=== PATIENT | female | born 1945 | race African-American/Black ===

== ENCOUNTER 2018-04-18 14:50 | Inpatient (IN) ==
--- NOTE | 2018-04-18 15:06 | EKG Report ---
Test Performed on : 04/18/2018 3:00:16 PM Test Reason : chest pain Blood Pressure : / mmHG Vent. Rate : 078 BPM Atrial Rate : 078 BPM P-R Int : 198 ms QRS Dur : 102 ms QT Int : 420 ms P-R-T Axes : 051 -13 072 degrees QTc Int : 478 ms Normal sinus rhythm. Possible Left atrial enlargement Nonspecific T wave abnormality Abnormal ECG When compared with ECG of 02-FEB-2018 10:26, (Unconfirmed) Nonspecific T wave abnormality, improved in Anterior leads Unconfirmed Result
[2018-04-18 15:21] LABS: BASO# 0.01 X1000 (0.0-0.2); BASO% 0.1 % (0.0-0.8); EOS# 0.09 X1000 (0.0-0.7); EOS% 1.3 % (0.0-10.0); HEMATOCRIT 40.7 % (37.0-47.0); HEMOGLOBIN 12.4 g/dL (12.0-16.0); LYMPH# 2.88 X1000 (1.2-3.4); LYMPH% 40.5 % (20.5-51.1); MCH 29.2 PG (27-31); MCHC 30.5 g/dL (33-37); MONO# 0.61 X1000 (0.11-0.59); MONO% 8.6 % (1.7-9.3); MPV 11.5 FL (7.4-10.4); NEUT# 3.52 X1000 (1.4-6.5); NEUT% 49.5 % (42.2-75.2); PLT 180 X1000 (130-400); RBC 4.24 XMIL (4.2-5.4); RDW 15.3 % (11.5-14.5); WBC 7.11 X1000 (4.8-10.8)
[2018-04-18 15:28] LABS: INR 0.94; PROTIME 13.4 Seconds (11.0-16.0)
[2018-04-18 15:29] LABS: PTT 29.8 Seconds (22.3-41.8)
--- NOTE | 2018-04-18 15:41 | Diag Imaging Result Doc PS360 ---
EXAM: CHEST-2 VIEWS 04/18/2018 HISTORY: chest pain TECHNIQUE: PA and lateral chest COMMENT: There is no evidence of acute cardiac or pulmonary disease. Compared to 02/02/2018 there has been no significant change. IMPRESSION: No evidence of acute disease. Electronically signed by Luis Gonzalez 04/18/2018 3:39 PM
[2018-04-18 15:59] LABS: ALB/GLOB RATIO 1.4; ALBUMIN 4.2 g/dL (3.5-5.0); CALCIUM 9.1 mg/dL (8.8-10.2); CREATININE 1.2 mg/dL (0.5-0.9); POTASSIUM 4.5 mmol/L (3.5-5.1); TOTAL BILIRUBIN 0.32 mg/dL (0.20-1.00); TOTAL PROTEIN 7.2 g/dL (6.3-8.3)
--- NOTE | 2018-04-18 16:51 | ED EKG INTERP ---
This chart was entered by Rosa M Moreno Scribe, acting as scribe for Vin Case MD. EKG Interpretation - EKG Time of EKG reading by physician:: 15:00 EKG Read and Signed by:: Vin Case EKG Interpretation (*Must complete 3 of following elements*): Abnormal Rate: 78 Rhythm: nsr QRS: other (possible left atrial enlargement) OR Interval: normal ST Wave: normal Comments: nonspecific T wave abnormality Attestation - Physician/ THADDEUS Attestation Patient care was provided by Advanced Practice Provider:: No The physician spent face to face time with patient:: Yes Advanced Practice Provider documentation review:: Supervising physician onsite and consulted in the evaluation and care of this patient. The physician did have a face to face encounter with the patient. This chart was documented by the indicated scribe, (Rosa M Moreno Scribe) and accurately reflects the services I performed and decisions made by me, Vin Case MD, as attested by the provider's signature.
[2018-04-18] MEDS ORDERED: PLAVIX PO ONE (19:23)
[2018-04-18] MEDS ORDERED: LABETALOL IV ONE (19:24)
[2018-04-18] MEDS ORDERED: NITROGLYCERIN TOP ONE (19:37)
[2018-04-18] MEDS ORDERED: MORPHINE IV ONE (20:25)
[2018-04-19] MEDS ORDERED: NITROGLYCERIN SL PRN (03:19)
--- NOTE | 2018-04-19 03:20 | HISTORY AND PHYSICAL ---
PRIMARY CARE PHYSICIAN: Dr. Parker. CHIEF COMPLAINT: Chest pain. HISTORY OF PRESENTING ILLNESS: A 72-year-old female with a history of diabetes mellitus type 2, hypertension, hyperthyroidism and rheumatoid arthritis, who had presented to emergency department with 1-day history of having chest pain. She states that it was radiating to her back and she was somewhat nauseated. She described the chest pain as dull and pressure like. States that it was not improving and subsequently she had come to the emergency department. In the ED, she was evaluated and due to her presenting symptoms it was thought that we would place her for observation for further evaluation and management. At the time of my examination, she had denied any headache, fever, chills, hemoptysis, melena, weight changes, but complained of chest pain. PAST MEDICAL HISTORY: Include diabetes mellitus type 2, hypertension, hypothyroidism, rheumatoid arthritis, anxiety disorder. PAST SURGICAL HISTORY: Hysterectomy, cholecystectomy, breast reduction, left knee surgery. ALLERGIES: Penicillin, aspirin CURRENT MEDICATIONS: Include the following: Xanax 0.5 mg p.o. t.i.d., baclofen 10 mg p.o. b.i.d., hydrochlorothiazide 25 mg p.o. daily, insulin 10 units subcutaneous at bedtime and 20 units q.a.m., irbesartan 150 mg p.o. daily, levothyroxine 150 mcg p.o. daily, methocarbamol 750 mg p.o. t.i.d., Singular 10 mg p.o. at bedtime, omeprazole 40 mg p.o. daily, sucralfate 1 g p.o. t.i.d. SOCIAL HISTORY: No history of smoking, alcohol or illicit drug use. FAMILY HISTORY: No history of coronary artery disease. REVIEW OF SYSTEMS: Fourteen point review of systems as listed in HPI. Other systems negative. PHYSICAL EXAMINATION: GENERAL: Cooperative, friendly female. She is resting more comfortably now. VITAL SIGNS: Temperature 98.4 degrees, pulse 74, respiration 18, blood pressure 166/88. HEENT: Atraumatic, normocephalic. Extraocular movements intact. PERRL. NECK: Supple. CHEST: Clear to auscultation. CARDIOVASCULAR: Regular rate and rhythm. ABDOMEN: Soft, positive bowel sounds. EXTREMITIES: No edema. NEUROLOGIC: She is awake, alert, oriented x3. GENITOURINARY: No bladder distention. SKIN: Warm. LABORATORIES AND STUDIES: WBC 7.11, hemoglobin 12.4, hematocrit 40.7, platelets 180,000. Sodium 141, potassium 4.5, chloride 104, CO2 is 26, BUN is 17, creatinine is 1.2, glucose is 202. Troponin is 0.010. ASSESSMENT: A 72-year-old female with a history of diabetes mellitus type 2, hypertension, hypothyroidism and rheumatoid arthritis had presented to the emergency department with a 1-day history of having chest pain. The patient was evaluated the emergency department and due to her presenting symptoms we will place her for observation for further evaluation and management. 1. Chest pain, atypical. 2. Diabetes mellitus type 2. 3. Hypertension. 4. Hypothyroidism. PLAN: 1. We will admit patient to medical floor with telemetry. 2. Continue cardiac workup. Check EKG, serial cardiac enzymes. We will use sublingual nitroglycerin and morphine p.r.n. chest pain. 3. 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 4. Put patient on glycemic protocol with sliding scale insulin regimen. 5. We will monitor blood pressure closely. 6. Restart other home medications. 7. Put patient on DVT prophylaxis with SCD. 8. We will continue to follow, and reassess and make further recommendations based on patient's clinical course. cc: Preston Mcgovern MD MTDD
[2018-04-19 03:37] LABS: URINE SOURCE CLEAN CATCH
[2018-04-19 03:43] LABS: BILIRUBIN URINE NEGATIVE (NEGATIVE); BLOOD URINE NEGATIVE (NEGATIVE); COLOR YELLOW; GLUCOSE URINE NEGATIVE (NEGATIVE); KETONE URINE NEGATIVE (NEGATIVE); LEUKOCYTES URINE NEGATIVE (NEGATIVE); NITRITE URINE NEGATIVE (NEGATIVE); PROTEIN URINE NEGATIVE (NEGATIVE); SP GRAVITY URINE 1.019; TURBIDITY URINE CLEAR (CLEAR); UROBILINOGEN URINE NORMAL (NORMAL)
[2018-04-19 03:44] LABS: UR EPITHELIAL CELLS <10 /HPF (<10); URINE BACTERIA 1+ /HPF; URINE RBC <10 /HPF (<10); URINE WBC <10 /HPF (<10)
[2018-04-19] MEDS ORDERED: PRILOSEC PO SCH ×2 (07:00)
[2018-04-19] MEDS: HUMULIN R SUBQ SCH ×4 (07:03→22:42)
[2018-04-19] MEDS: XANAX PO PRN (07:06)
[2018-04-19] MEDS: SYNTHROID PO SCH (07:11)
[2018-04-19] MEDS: TYLENOL PO PRN ×2 (08:12→13:40)
--- NOTE | 2018-04-19 10:56 | Diag Imaging Result Doc PS360 ---
CT THORAX W/O CONTRAST - 04/19/2018 INDICATION: chest pain COMPARISON: Chest x-ray 04/18/2018 FINDINGS: There is no adenopathy. Heart and great vessels are normal. The lungs are clear. There are cholecystectomy clips. Otherwise upper abdominal images are unremarkable. There are advanced degenerative changes of the spine. No acute or suspicious bony lesion. IMPRESSION: No acute disease. This exam was performed using automated exposure control, adjustment of mA or kV according to patient size, and/or use of iterative reconstruction technique Electronically signed by Cristino Fernandez 04/19/2018 10:53 AM
--- NOTE | 2018-04-19 11:46 | EKG Report ---
Test Performed on : 04/19/2018 11:29:45 AM Test Reason : chest pain Blood Pressure : / mmHG Vent. Rate : 061 BPM Atrial Rate : 061 BPM P-R Int : 204 ms QRS Dur : 102 ms QT Int : 504 ms P-R-T Axes : 049 -05 129 degrees QTc Int : 507 ms Normal sinus rhythm. T wave abnormality, consider anterolateral ischemia Prolonged QT Abnormal ECG When compared with ECG of 18-APR-2018 15:00, (Unconfirmed) Nonspecific T wave abnormality now evident in Inferior leads T wave inversion now evident in Anterior leads Confirmed by Ace Pizano MD ([id number]) on 04/20/2018 8:30:45 AM
[2018-04-19] MEDS: ZOFRAN IV PRN (15:36)
[2018-04-19] MEDS ORDERED: TESSALON PO PRN (16:17)
[2018-04-19] MEDS: NS 1,000 ML IV SCH (16:50)
[2018-04-19] MEDS: AVAPRO PO SCH (16:59)
[2018-04-19] MEDS: ROBAXIN PO PRN (16:59)
[2018-04-19] MEDS: HYDROCHLOROTHIAZIDE PO SCH (16:59)
[2018-04-19] MEDS: NORCO-5 PO PRN ×2 (17:41→23:52)
--- NOTE | 2018-04-19 22:19 | CARDIOLOGY CONSULTATION ---
DATE: 04/19/2018 CHIEF COMPLAINT ON PRESENTATION: Chest pain. HISTORY OF PRESENT ILLNESS: Ms. Orozco is a 72-year-old black female with a history of diabetes, hypertension, hyperthyroidism and angiographically normal coronaries by catheterization in [place] in August 2016. She presented with complaints of chest pain that apparently occurred shortly after she woke up on morning. She said she had quite a bit of coughing Sunday evening into early morning that was nonproductive. The pain is located in the midchest and radiates around to the back. There is a significant positional component of the discomfort that hurts quite a bit when she rolls over in bed. There does not appear to be a straight exertional component with just walking. She has no other associated symptoms with it. PAST MEDICAL HISTORY: 1. Significant for diabetes. 2. Hypertension. 3. Hypothyroidism. 4. Obesity. 5. History of osteomyelitis apparently of the spine in the past. 6. Reflux disease. 7. Angiographically normal coronary arteries by catheterization in August 2016 in [place] as well as a normal cardiac catheterization in 2008 in [place]. SOCIAL HISTORY: No tobacco, alcohol or illicit drugs. FAMILY HISTORY: No history of coronary disease. REVIEW OF SYSTEMS: A 10 system review of systems is negative except for those things mentioned in HPI. PHYSICAL EXAMINATION: Vital Signs: She is afebrile. Heart rate is 61, blood pressure 154/65. General: She is in no acute distress. HEENT: Oropharynx is moist. Normal dentition. Eye examination shows pink conjunctivae. White sclerae. Neck: Examination shows no obvious thyromegaly or thyroid tenderness. Cardiovascular: She sounds to be in a regular rate and rhythm. She has no obvious murmurs. She has no S3. She has no lower extremity edema. Chest: Clear bilaterally. She has no increased work of breathing. Abdomen: Soft, nontender, nondistended. She has no obvious organomegaly. Skin: Warm and dry throughout. Neurological: Moving all extremities well. No lateralizing deficits. PERTINENT DATA: She had an electrocardiogram performed on the at 1500. This showed sinus rhythm, nonspecific ST-T changes somewhat diffusely. She had a subsequent EKG on the at 11:01 showing sinus rhythm, T-wave inversions laterally. This appears consistent with previous EKGs that she has had in our system. At times she has had nonspecific ST-T changes as well as some lateral T-wave inversions. She had a nuclear scan with a predominantly fixed defect in the anterior wall with intact wall motion in that area, ejection fraction of 61% on that study. She had a chest CT demonstrating no evidence of acute disease. Advanced degenerate changes of the spine were noted. Lab data shows a white count of 7.1, hematocrit 40, platelet count 180,000. Her sodium is 141, potassium 4.5, BUN 17, creatinine is 1.2. Cardiac enzymes are negative times multiple sets including CKs. She had a troponin checked on presentation at 1509 as well as a troponin checked on the at 1115. All of them were normal. Urinalysis was unremarkable. ASSESSMENT: Ms Orozco is a 72-year-old female presenting with atypical chest pain. She has a history of normal cardiac catheterization in 2008 and August 2016. PLAN: She has atypical symptoms with EKGs that appear consistent with old. She has negative cardiac enzymes. Given the fact that she has had stable cardiac catheterizations x2 previously with the most recent being around 1-1/2 years ago, I would not pursue this from an ischemia standpoint. From my standpoint, she may be discharged home when deemed safe from the primary team standpoint. cc: Micky Huynh MD
[2018-04-19] MEDS: BASAGLAR SUBQ SCH (22:41)
[2018-04-19] MEDS: PROTONIX IV SCH (22:41)
[2018-04-19] MEDS: SODIUM CHLORIDE 0.9% INJ SCH (22:41)
[2018-04-19] MEDS: LIPITOR PO SCH (22:42)
--- NOTE | 2018-04-20 00:18 | PROVIDER DOCUMENTATION ---
This chart was entered by Enma Gaviria Scribe, acting as scribe for Amanda Hudson MD. HPI-General Adult - General Chief Complaint: Chest Pain Stated Complaint: CP,NAUSEA,SHAKING Time Seen by Provider: 04/18/18 18:44 Source: patient Allergies/Adverse Reactions: Patient Allergies Allergy/AdvReac Type Severity Reaction Status Date / Time aspirin Allergy HIVES Verified 04/18/18 18:32 diphenhydramine Allergy ALTERED Verified 04/18/18 18:32 [From Benadryl] MENTAL STATUS Penicillins Allergy HIVES Verified 04/18/18 18:32 Home Medications: Home Medication List Medication Instructions Recorded Confirmed Last Taken Type Alprazolam 0.5 mg PO TID PRN 07/29/17 04/19/18 04/18/18 History Insulin Glargine [Lantus] 20 unit SUBQ QHS 07/29/17 04/19/18 04/17/18 History Insulin Glargine [Lantus] 20 units SUBQ QAM 07/29/17 04/19/18 04/18/18 History Hydrochlorothiazide 25 mg PO DAILY 12/10/17 04/19/18 04/18/18 History Irbesartan 150 mg PO DAILY 12/10/17 04/19/18 04/18/18 History Benzonatate 200 mg PO TID PRN PRN #30 cap 02/03/18 04/19/18 Unknown Rx Methocarbamol [Robaxin-750] 750 mg PO TID PRN 02/03/18 04/19/18 Unknown History Omeprazole 40 mg PO DAILY@0700 02/03/18 04/19/18 04/18/18 History Atorvastatin Calcium [Lipitor] 10 mg PO DAILY@2100 04/19/18 04/19/18 Unknown History Hydrocodone/Acetaminophen [[place] 1 tab PO Q6HR PRN 04/19/18 04/19/18 04/18/18 History 5-325 Tablet] Levothyroxine [Synthroid] 1 tab PO QAM 04/19/18 04/19/18 04/18/18 History - History of Present Illness -Gen Adult Nature of Presenting Problems: Pt is 72/F presenting to ED w/ c/o cp that she sts comes from her L mid back and wraps around to her chest. She sts that she also has a cough, is shaky, cold w/ nausea and a headache. She sts that she has had these symptoms for a month, but that they have gotten worse just today. Pt had recent stress test and was told that everything was fine w/ her heart. hx of DM and hypo thyroid. Location of Pain/Injury: reports: head, chest, back Pain Radiation: reports: chest (pain radiates from back into substernal chest area) Quality of Pain: reports: aching Severity: reports: moderate Onset/Duration: reports: other (one month and worsening just today.) Timing: reports: still present Context/Activities at Onset: reports: none Modifying Factors: improves with: nothing Associated Symptoms: reports: cough, fever/chills, nausea. denies: shortness of breath, vomiting Similar Symptoms Previously?: Yes Recently seen or treated by another doctor?: No Review of Systems - Adult - REVIEW OF SYSTEMS - ADULT Constitutional: reports: chills, fever Eyes: reports: no symptoms reported Ears, Nose, Mouth & Throat: reports: sinus problem. denies: ear pain, throat pain Cardiovascular: reports: chest pain, edema Respiratory: reports: cough. denies: shortness of breath, wheezing Gastrointestinal: reports: nausea. denies: diarrhea, vomiting Genitourinary: reports: no symptoms reported Musculoskeletal: reports: back pain Neurological: reports: headache/migraines Past History - Adult - PAST MEDICAL HISTORY-ADULT Review of Records: reports: Old Records Reviewed, Nursing Assessment Review, Medications Reviewed, Social history reviewed & non-contributory. Major Childhood Illnesses: reports: denies history Cardiovascular: reports: HTN, hyperlipidemia Respiratory: reports: denies history, COPD Gastrointestinal: reports: GERD, pancreatitis Obstetrical/Gynecological: reports: denies history Genitourinary: reports: denies history, other (frequent UTIs) Musculoskeletal: reports: denies history, other (osteomylitis) Neurological: reports: denies history Psychiatric: reports: anxiety Endocrine/Immune: reports: Diabetes, thyroid disorder (hypo) Other Conditions: reports: denies history - PRIOR SURGERIES/PROCEDURES Surgical/Procedure History: reports: reviewed, not pertinent, cholecystectomy, cardiac stent, hysterectomy, tonsillectomy, joint replacement (knee), breast ( reduction) - IMMUNIZATION STATUS Childhood Immunizations: See Nurse Assessment Flu Vaccine: See Nurse Assessment - FAMILY HISTORY Family History: reviewed, not pertinent - SOCIAL HISTORY Smoking: quit greater than 1 year Substance Use: none/never Alcohol Use Frequency: never Living Situation: family Physical Exam-General - PHYSICAL EXAM-ADULT Initial Vital Signs Reviewed: Yes - CONSTITUTIONAL General Appearance: appears well, alert, no apparent distress (resting comfortably in bed during time of exam) - EYES Eyes: PERRL/EOMI - HEAD, EARS, NOSE, MOUTH & THROAT HENMT: moist mucous membranes, normal ENT inspection, TMs normal - NECK Neck: non-tender, full range of motion, supple, normal inspection - RESPIRATORY Respiratory: chest non-tender, lungs clear, normal breath sounds - CARDIOVASCULAR Cardiovascular: regular rate, rhythm, no edema, no gallop. negative: JVD - GASTROINTESTINAL (ABDOMEN) Abdominal Exam: normal bowel sounds, non tender, soft - LYMPHATIC Lymphatic: no adenopathy - MUSCULOSKELETAL Back Exam: normal inspection, no CVA tenderness, no vertebral tenderness Extremity: normal range of motion, non-tender, normal gait, normal inspection, other (pt has +1 edema lower extremities bilaterally) - SKIN Integumentary: normal color, warm/dry - NEUROLOGIC Neurologic: grossly normal - PSYCHIATRIC Psych/Mental Status: normal mood/affect, normal thought content, normal thought process, oriented x 3 Progress - PLAN OF CARE/RESULTS Progress/Plan/Lab Results: Vital Signs - 8 hr 04/18/18 14:53 Temperature 98.4 F Pulse Rate 74 Respiratory Rate 18 Blood Pressure 166/88 O2 Sat by Pulse Oximetry 99 04/18/18 15:09 Influenza Screen - Final Nasopharyngeal Laboratory Results - last 24 hr 04/18/18 04/18/18 04/18/18 15:09 15:09 15:09 WBC 7.11 RBC 4.24 Hgb 12.4 Hct 40.7 MCV 96.0 MCH 29.2 MCHC 30.5 L RDW Std Deviation 15.3 H Plt Count 180 MPV 11.5 H Immature Gran % (Auto) 0.0 Neut % (Auto) 49.5 Lymph % (Auto) 40.5 [place] % (Auto) 8.6 Eos % (Auto) 1.3 Baso % (Auto) 0.1 Immature Gran # (Auto) 0.00 Neut # (Auto) 3.52 Lymph # (Auto) 2.88 [place] # (Auto) 0.61 H Eos # (Auto) 0.09 Baso # (Auto) 0.01 PT INR PTT (Actin FS) Sodium 141 Potassium 4.5 Chloride 104 Carbon Dioxide 26 Anion Gap 11 BUN 17 Creatinine 1.2 H Estimated GFR/1.73 m2 53 BUN/Creatinine Ratio 14 Glucose 202 H Calculated Osmolality 289 Calcium 9.1 Total Bilirubin 0.32 AST 11 ALT 7 L Alkaline Phosphatase 71 Creatine Kinase 112 Troponin T [id number]-Efhoztmwuqm Pept 146 Total Protein 7.2 Albumin 4.2 Globulin 3.0 Albumin/Globulin Ratio 1.4 04/18/18 04/18/18 15:09 15:09 WBC RBC Hgb Hct MCV MCH MCHC RDW Std Deviation Plt Count MPV Immature Gran % (Auto) Neut % (Auto) Lymph % (Auto) [place] % (Auto) Eos % (Auto) Baso % (Auto) Immature Gran # (Auto) Neut # (Auto) Lymph # (Auto) [place] # (Auto) Eos # (Auto) Baso # (Auto) PT 13.4 INR 0.94 PTT (Actin FS) 29.8 Sodium Potassium Chloride Carbon Dioxide Anion Gap BUN Creatinine Estimated GFR/1.73 m2 BUN/Creatinine Ratio Glucose Calculated Osmolality Calcium Total Bilirubin AST ALT Alkaline Phosphatase Creatine Kinase Troponin T < 0.010 Ugw-T-Coqwaqkhnby Pept Total Protein Albumin Globulin Albumin/Globulin Ratio Orders Category Date Time Status Cardiac Monitoring DIRECTED Care 04/18/18 14:59 Active Saline Loc NOW Care 04/18/18 14:59 Active CHEST-2 VIEWS [RAD] Stat Exams 04/18/18 14:59 Completed CBC WITH ELECTRONIC DIFF [HEME] Stat Lab 04/18/18 15:09 Completed CK PROFILE [SP CHEM] Stat Lab 04/18/18 15:09 Completed COMPREHENSIVE METABOLIC PANEL [CHEM] Stat Lab 04/18/18 15:09 Completed INFLUENZA SCREEN A/B Stat Lab 04/18/18 15:09 Completed PRO B-NATRIURETIC PEPTIDE Stat Lab 04/18/18 15:09 Completed PROTIME WITH INR [COAG] Stat Lab 04/18/18 15:09 Completed PTT [COAG] Stat Lab 04/18/18 15:09 Completed TROPONIN T Stat Lab 04/18/18 15:09 Completed CP/SOB/Palp >45 yrs of Age Stat Oth 04/18/18 14:56 Ordered EKG [EKG] Stat Ther 04/18/18 14:59 Draft Heart score 4 Patient Hx, physical exam assessment and plan discussed with the attending physician Dr. Luna and he agree with the plan as documented. Result Diagrams: 04/18/18 15:09 04/18/18 15:09 - REASSESSMENT Reassessment #1 Status: improving (Mutiple reassessment. Patient said her chest pain get better.BP improved. heart score 4. will dmit to the hospital.) - XRAY 1 XRAY: Bilateral XRAY Study: Chest Impression: Normal (COMMENT: There is no evidence of acute cardiac or pulmonary disease. Compared to 02/02/2018 there has been no significant change. IMPRESSION: No evidence of acute disease. Electronically signed by Luis Gonzalez 04/18/2018 3:39 PM 04/18/181538 Interpreting Physician: Luis Gonzalez MD Dictated Date/Time: 04/18/181538) Comparison with other Films: no changes - CONSULTS/PCP/HOSPITALIST Notification #1 *Consult/PCP/Hospitalist*: Dr. Mcgovern Time Discussed: 00:35 Consult Disposition: Admit (Accepted.) Departure - Departure Date of Disposition Decision: 04/19/18 Time of Disposition Decision: 00:34 DIAGNOSIS: Hypertensive urgency Chest pain Qualifiers: Chest pain type: unspecified Qualified Code(s): R07.9 - Chest pain, unspecified Disposition: ADMITTED INPATIENT 09 Certified Medical Emergency: Emergent Condition: Stable - Critical Care Note This patient required my direct & personal management of CC.: No Attestation - Physician/ THADDEUS Attestation Patient care was provided by Advanced Practice Provider:: No The physician spent face to face time with patient:: Yes Advanced Practice Provider documentation review:: Supervising physician onsite and consulted in the evaluation and care of this patient. The physician did have a face to face encounter with the patient. This chart was documented by the indicated scribe, (Enma Gaviria Scribe) and accurately reflects the services I performed and decisions made by me, Amanda Hudson MD, as attested by the provider's signature.
[2018-04-20] MEDS: XANAX PO PRN ×2 (02:08→11:08)
[2018-04-20] MEDS: ZOFRAN IV PRN (03:20)
[2018-04-20 03:34] LABS: BASO# 0.02 X1000 (0.0-0.2); BASO% 0.4 % (0.0-0.8); EOS# 0.09 X1000 (0.0-0.7); EOS% 1.6 % (0.0-10.0); HEMATOCRIT 39.5 % (37.0-47.0); HEMOGLOBIN 11.9 g/dL (12.0-16.0); IMM GRAN# 0.02 X1000 (0.0-0.04); IMM GRAN% 0.4 % (0.0-0.5); LYMPH# 2.42 X1000 (1.2-3.4); LYMPH% 44.2 % (20.5-51.1); MCHC 30.1 g/dL (33-37); MCV 96.3 FL (81-99); MONO# 0.56 X1000 (0.11-0.59); MONO% 10.2 % (1.7-9.3); MPV 10.9 FL (7.4-10.4); NEUT# 2.37 X1000 (1.4-6.5); NEUT% 43.2 % (42.2-75.2); PLT 176 X1000 (130-400); RDW 15.1 % (11.5-14.5); WBC 5.48 X1000 (4.8-10.8)
[2018-04-20] MEDS: NS 1,000 ML IV SCH (03:47)
[2018-04-20 03:55] LABS: CREATININE 1.1 mg/dL (0.5-0.9); POTASSIUM 4.1 mmol/L (3.5-5.1)
[2018-04-20 03:56] LABS: CHOLESTEROL 131 mg/dL (0-200); HDL 40 mg/dL (45-65); LDL 66 mg/dL; TRIGLYCERIDES 127 mg/dL (35-135); VLDL 25 mg/dL
[2018-04-20] MEDS: HUMULIN R SUBQ SCH ×4 (06:44→23:47)
[2018-04-20] MEDS: SYNTHROID PO SCH (06:45)
--- NOTE | 2018-04-20 08:09 | Diag Imaging Result Doc PS360 ---
CT HEAD W/O CONTRAST - 04/20/2018 INDICATION: Poss. Seizure like activity COMPARISON: 07/29/2017 FINDINGS: The ventricles and sulci are normal in size and contour. There is stable mild periventricular white matter chronic microvascular disease. No intracranial mass or hemorrhage. The skull is intact. The sinuses are clear. IMPRESSION: No acute disease or change from prior. This exam was performed using automated exposure control, adjustment of mA or kV according to patient size, and/or use of iterative reconstruction technique Electronically signed by Cristino Fernandez 04/20/2018 8:07 AM
[2018-04-20 08:58] LABS: AMYLASE 50 U/L (20-200); LIPASE 17 U/L (13-60)
[2018-04-20] MEDS: 1/2 NS 1,000 ML IV SCH (10:00)
[2018-04-20] MEDS: SODIUM CHLORIDE 0.9% INJ SCH ×2 (11:08→23:45)
[2018-04-20] MEDS: HYDROCHLOROTHIAZIDE PO SCH (11:08)
[2018-04-20] MEDS: AVAPRO PO SCH (11:08)
[2018-04-20] MEDS: PROTONIX IV SCH ×2 (11:08→23:45)
[2018-04-20] MEDS: BASAGLAR SUBQ SCH ×2 (11:11→23:46)
--- NOTE | 2018-04-20 11:15 | Diag Imaging Result Doc PS360 ---
CT ABD/PELVIS W/ORAL CONT ONLY - 04/20/2018 INDICATION: abdominal pain/nausea COMPARISON: 10/15/2017 FINDINGS: Aside from some minimal linear atelectasis, the lung bases are clear. Heart size is normal with no pericardial effusion. The left kidney is atrophic with contour abnormalities compatible with scarring stable prior. There is also stable small cyst at the upper pole of the left kidney. There is some minimal left perinephric edema similar to prior. No radiodense renal stones. No hydronephrosis or hydroureter. No bowel obstruction or inflammation. Urinary bladder and rectum are normal. Uterus is absent. There are advanced degenerative changes of the spine. No acute or suspicious bony lesion. IMPRESSION: No change from prior. Left renal scarring and renal cyst. Nonspecific perinephric edema on the left. This exam was performed using automated exposure control, adjustment of mA or kV according to patient size, and/or use of iterative reconstruction technique Electronically signed by Cristino Fernandez 04/20/2018 11:13 AM
[2018-04-20] MEDS: ROBAXIN PO PRN (12:49)
[2018-04-20] MEDS: MIRALAX PO SCH ×2 (16:00→23:46)
[2018-04-20] MEDS: LOVENOX SUBQ SCH (16:00)
[2018-04-20] MEDS: NORCO-5 PO PRN (18:56)
[2018-04-20] MEDS ORDERED: MIRALAX PO SCH (21:00)
[2018-04-20] MEDS ORDERED: INSULIN PEN NEEDLES ONE (23:37)
[2018-04-20] MEDS: LIPITOR PO SCH (23:45)
--- NOTE | 2018-04-21 00:29 | PROGRESS NOTE ---
DATE: 04/20/2018 SUBJECTIVE: The patient complains of epigastric pain, as well as a mild nausea. OBJECTIVE: Vital Signs: Temperature 98.1 degrees, blood pressure 154/53, heart rate 65, respirations 24, oxygen saturation is 100% on room air. General: This is a morbidly obese female, lying in bed, in no acute distress. Heart: S1, S2 normal. Regular rate and rhythm. Lungs: Clear to auscultation bilaterally. Abdomen: Positive bowel sounds. Soft, nontender, nondistended. Extremities: No edema. No cyanosis. No calf tenderness. Neurologic: The patient is alert and oriented x3. LABS: Reviewed. ASSESSMENT AND PLAN: 1. Abdominal pain. The patient's amylase and lipase are normal, and her CT of the abdomen and pelvis is nonspecific. The patient may have diabetic gastroparesis. Will consult GI for further recommendations. 2. Atypical chest pain. Resolved. 3. Anxiety disorder. Continue on Xanax. 4. Diabetes mellitus type 2. Continue on glargine and sliding scale insulin. 5. Morbid obesity. Aware. 6. Hypertension. Continue on current antihypertensive regimen. 7. Hypothyroidism. Continue on Synthroid. 8. Deep vein thrombosis prophylaxis. Will place the patient on Lovenox. cc: Charity Barnes MD
[2018-04-21] MEDS: TYLENOL PO PRN ×3 (02:01→23:33)
[2018-04-21] MEDS: 1/2 NS 1,000 ML IV SCH ×3 (02:11→17:22)
[2018-04-21] MEDS: XANAX PO PRN (02:11)
--- NOTE | 2018-04-21 06:31 | GASTROENTEROLOGY CONSULTATION ---
DATE: 04/20/2018 ATTENDING PHYSICIAN: Dr. Barnes. REFERRING PHYSICIAN: Dr. Parker. REASON FOR CONSULTATION: Abdominal pain and nausea. HISTORY OF PRESENT ILLNESS: Ms. Orozco is a 72-year-old female who was admitted on 04/19/2018 for chest pain. She had a history of recent EGD done in December [address] Sharma. At that time, she had esophageal dilation done. The patient has history of acid reflux. She admits to taking PPIs daily. She has history of a colonoscopy done more than a year ago which she describes was normal. She has a history of constipation. She goes to the bathroom once every 2 to 3 days. She underwent imaging during the hospital stay in the form of CT of the abdomen and pelvis which showed small cyst in the upper pole of the left kidney. No bowel obstruction or inflammation. Uterus is absent. Advanced degenerative changes of the spine. Because of her ongoing epigastric pain and nausea, gastroenterology was consulted. PAST MEDICAL HISTORY: Type 2 diabetes, obesity, hypertension, hypothyroidism, rheumatoid arthritis, anxiety disorder, reflux disease, constipation, and esophageal stricture. PAST SURGICAL HISTORY: Hysterectomy, cholecystectomy, breast reduction, left knee surgery. ALLERGIES: Penicillin and aspirin. SOCIAL HISTORY: No history of alcohol, tobacco, or illicit drug abuse. FAMILY HISTORY: Does have a history of colon cancer in maternal aunt in her 70' s. REVIEW OF SYSTEMS: Denies any current fevers, rigors, or chills. She did admit to chest pain on admission, which is now resolved. She does complain of nausea, bloating, and abdominal discomfort in the epigastric, periumbilical region. She also complains of irregular bowels , having a bowel movement every 2 to 3 days. She has a history of arthritis and back pain. She denies any neurologic complaints. MEDICATIONS IN THE HOSPITAL: Include insulin glargine, nitroglycerin, normal saline half normal at 75 mL per hour, Tylenol, Xanax, Lipitor, Tessalon, Lovenox, hydrochlorothiazide, Blakeslee 5, insulin glargine, Humulin R sliding scale, Avapro, Synthroid, Robaxin, Zofran, Protonix, and MiraLAX. She is on a full liquid diet. PHYSICAL EXAMINATION: Vital Signs: Temperature of 98 degrees, pulse rate of 74 , respiratory rate of 12, blood pressure of 140/54, saturating 98% on room air. Body weight of 295 pounds 9.6 ounces. BMI 47.7 kg/m2. General Appearance: The patient is morbidly obese. Lying in bed, in no acute distress. HEENT: No pallor. No icterus. Pupils equal, reactive to light. Neck: Supple. Abdomen: Obese. Discomfort in the periumbilical region. No rebound or guarding. Extremities: No cyanosis, clubbing. Neurologic: She is alert, awake, and oriented x3. LABS: Hemoglobin and hematocrit are 11.9 and 39.4, white count of 5.48, platelet count of 176,000. Sodium 140, potassium 4.1, chloride 106, bicarb 26, anion gap 11, BUN of 14, creatinine 1, glucose of 162, calcium is 9, magnesium is 2. AST 11, ALT 7, alkaline phosphatase 71, total protein is 7.2, albumin of 4.2, amylase of 50, lipase of 17. Urinalysis is clear. HDL is 40. Flu screen was negative for A and B. CT scan as described in the HPI. Last endoscopy on 12/12/[address] Sharma showed: 1. Cricopharyngeal achalasia, status post dilation. 2. Schatzki's ring at GE junction. 3. Hiatal hernia. 4. Nonerosive gastritis. 5. Retained gastric secretions. 6. Normal duodenum. IMPRESSION AND PLAN: 1. Nausea. 2. Reflux disease. 3. Abdominal pain in the periumbilical region. 4. Constipation. 5. Obesity. 6. Diabetes. RECOMMENDATIONS: 1. We will keep her on a full liquid diet. The patient was encouraged to keep good control of diabetes. Patient was encouraged to lose weight. 2. We will start her on MiraLAX 17 g p.o. b.i.d. 3. We will need to reduce the narcotics to as low as possible. 4. DVT prophylaxis with Lovenox. 5. GI prophylaxis with PPIs. 6. We will follow along. If the patient's symptoms persist, then she may need repeat endoscopy. The above plan was discussed with the patient and all questions were answered. Please call us with any further questions. cc: MD Parag Harris MD [facility]
[2018-04-21] MEDS: SYNTHROID PO SCH (06:43)
[2018-04-21] MEDS: HUMULIN R SUBQ SCH ×4 (06:43→22:45)
[2018-04-21 07:17] LABS: AGAP 13; ALB/GLOB RATIO 0.9; ALBUMIN 3.1 g/dL (3.5-5.0); ALKALINE PHOSPHATASE 54 U/L (32-104); BUN 11 mg/dL (8-22); CALCIUM 7.9 mg/dL (8.8-10.2); CHLORIDE 107 mmol/L (98-107); COSMO 289; ESTIMATED GFR > 60; GLUCOSE 116 mg/dL (70-104); GOT 13 U/L (10-30); GPT 9 U/L (10-36); POTASSIUM 3.9 mmol/L (3.5-5.1); SODIUM 145 mmol/L (136-145); TCO2 25 mmol/L (25-35); TOTAL BILIRUBIN 0.19 mg/dL (0.20-1.00); TOTAL PROTEIN 6.5 g/dL (6.3-8.3)
[2018-04-21] MEDS ORDERED: MILK OF MAGNESIA PO ONE (08:26)
[2018-04-21] MEDS: MIRALAX PO SCH ×2 (08:58→22:46)
[2018-04-21] MEDS: AVAPRO PO SCH (08:59)
[2018-04-21] MEDS: HYDROCHLOROTHIAZIDE PO SCH (08:59)
[2018-04-21] MEDS: ATIVAN IV PRN ×2 (09:00→23:32)
[2018-04-21] MEDS: PROTONIX IV SCH ×2 (09:00→22:46)
[2018-04-21] MEDS: BASAGLAR SUBQ SCH ×2 (09:00→22:47)
[2018-04-21] MEDS: SODIUM CHLORIDE 0.9% INJ SCH ×2 (09:00→22:46)
[2018-04-21 09:05] LABS: HEMATOCRIT 40.5 % (37.0-47.0); MCH 28.8 PG (27-31); MCHC 29.6 g/dL (33-37); MCV 97.4 FL (81-99); MPV 11.5 FL (7.4-10.4); RBC 4.16 XMIL (4.2-5.4); RDW 15.2 % (11.5-14.5); WBC 5.07 X1000 (4.8-10.8)
[2018-04-21 09:30] LABS: ALBUMIN 3.7 g/dL (3.5-5.0); CALCIUM 8.5 mg/dL (8.8-10.2); CREATININE 1.3 mg/dL (0.5-0.9); POTASSIUM 4.2 mmol/L (3.5-5.1); TOTAL BILIRUBIN 0.27 mg/dL (0.20-1.00); TOTAL PROTEIN 7.4 g/dL (6.3-8.3)
[2018-04-21 09:55] LABS: FREE T4 1.77 ng/dL (0.93-1.70); TSH 0.26 uIUmL (0.27-4.20)
[2018-04-21 12:09] LABS: C REACTIVE PROT QUANT 2.25 mg/L (0.00-5.00)
[2018-04-21] MEDS: DULCOLAX PR SCH (12:41)
--- NOTE | 2018-04-21 14:21 | PROGRESS NOTE ---
DATE: 04/21/2018 SUBJECTIVE: The patient states that she feels very anxious and admits to some depression due to her home situation. OBJECTIVE: Vital Signs: Temperature 98.2 degrees, blood pressure 156/76, heart rate 66, respirations 16, O2 saturation 99% on room air. General: This is a morbidly obese female lying in bed in no acute distress. Heart: S1, S2 normal. Regular rate and rhythm. Lungs: Clear to auscultation bilaterally. Abdomen: Positive bowel sounds. Soft, nontender, nondistended. Extremities: No edema, no cyanosis. Neuro: The patient is alert and oriented x3. LABS: White blood cell count 5, hemoglobin 12, hematocrit 40, platelets 176,000, sodium 145, potassium 4.2, chloride 109, CO2 25, BUN 11, creatinine 1.3, glucose 117, AST 15, ALT 9, alkaline phosphatase 66, TSH 0.26, free T4 1.77. ASSESSMENT AND PLAN: 1. Abdominal pain. So far the workup has been unremarkable. The patient is on laxative therapy to aid with bowel movements. Will await further recommendations from GI. 2. Atypical chest pain. Resolved. 3. Anxiety disorder. Will increase the patient's Xanax dosage. 4. Situational depression. Will start the patient on Zoloft. 5. Diabetes mellitus type 2. Continue on the current insulin regimen. 6. Hypothyroidism. The patient's thyroid function studies show that the patient may be becoming hyperthyroid, will hold the Synthroid at this time and have the patient follow up with her primary care physician upon discharge. 7. Hypertension. Continue on the current antihypertensive regimen. 8. Morbid obesity. Aware. 9. Deep vein thrombosis prophylaxis. Continue on Lovenox. 10. Will consult physical therapy. cc: Charity Barnes MD
[2018-04-21] MEDS: LOVENOX SUBQ SCH (17:22)
--- NOTE | 2018-04-21 20:06 | GASTROENTEROLOGY PROGRESS NOTE ---
DATE: 04/21/2018 SUBJECTIVE: Patient is resting in bed. The patient had moved her bowels today. She is feeling better. She denies any new complaints. OBJECTIVE: Vital Signs: Temperature 98.1, pulse of 62, respiratory rate of 20, blood pressure 162/97, satting 100% on room air. General: Obese, in no acute distress. HEENT: No pallor. No icterus. Neck: Supple. Abdomen: Soft, nontender, nondistended. No guarding. Extremities: No cyanosis, clubbing. Neurologic: She is alert, awake, oriented x 3. LABS: Her hemoglobin and hematocrit is 12 and 40.5, white count of 5.07, platelet count of 176,000. Sodium 140, potassium 4.2 chloride 109, bicarb 29, anion gap 11, BUN of 11, creatinine 1.3, glucose of 117, calcium 8.5, total bilirubin is 0.27, AST 15, ALT 9, alkaline phosphatase 66, total protein is 7.4, albumin of 3.7, CRP is 2.25. Troponins less than 0.1. Her TSH 0.26, free T4 is 1.77. IMPRESSION AND PLAN: 1. Abdominal pain is improved after moving her bowels. We will continue on gentle bowel regimen with MiraLAX twice daily. She will hold MiraLAX for 1 dose if she has more than 3 bowel movements in 24 hours. 2. Anxiety disorder. She is on Xanax. 3. Atypical chest pain, resolved. 4. Gastroesophageal reflux disease. Continue PPIs. 5. Situational depression. She is on Zoloft per primary team. 6. Type 2 diabetes. She is on insulin regimen. 7. Obesity. Patient counseled to lose weight. 8. DVT prophylaxis. She is on Lovenox. 9. The above plans discussed with the patient and all questions answered. We will sign off for now and Dr. Junior/Dr. Sharma will start the followup tomorrow. We will be available if needed. Please call us with any further questions. cc: MD Ayde Engle MD Adnan A. Seljuki, MD Manish Arora, MD
[2018-04-21] MEDS: LIPITOR PO SCH (22:46)
[2018-04-22 06:37] LABS: HEMATOCRIT 35.6 % (37.0-47.0); HEMOGLOBIN 10.6 g/dL (12.0-16.0); MCHC 29.8 g/dL (33-37); MCV 100.8 FL (81-99); MPV 11.4 FL (7.4-10.4); RBC 3.53 XMIL (4.2-5.4); RDW 15.2 % (11.5-14.5); WBC 5.1 X1000 (4.8-10.8)
[2018-04-22] MEDS: AVAPRO PO SCH ×2 (06:46→09:00)
[2018-04-22 06:56] LABS: CALCIUM 8.5 mg/dL (8.8-10.2); CREATININE 1.3 mg/dL (0.5-0.9); POTASSIUM 4.1 mmol/L (3.5-5.1)
[2018-04-22] MEDS: 1/2 NS 1,000 ML IV SCH (07:39)
[2018-04-22] MEDS: HUMULIN R SUBQ SCH ×4 (07:45→22:30)
[2018-04-22] MEDS: PROTONIX IV SCH ×2 (08:57→22:30)
[2018-04-22] MEDS: ZOLOFT PO SCH (08:57)
[2018-04-22] MEDS: SODIUM CHLORIDE 0.9% INJ SCH ×2 (08:57→22:30)
[2018-04-22] MEDS: MIRALAX PO SCH (08:58)
[2018-04-22] MEDS: BASAGLAR SUBQ SCH ×2 (08:59→22:30)
[2018-04-22] MEDS: DULCOLAX PR SCH (08:59)
[2018-04-22] MEDS ORDERED: APRESOLINE PO ONE (09:53)
[2018-04-22] MEDS ORDERED: DULCOLAX PR PRN (11:27)
--- NOTE | 2018-04-22 13:21 | PROGRESS NOTE ---
DATE: 04/22/2018 SUBJECTIVE: Patient states she is feeling a little better. She is asking for something to eat. She states she is not tolerating the puddings and things that are on a liquid diet. She states her abdominal pain has improved some. She does report having 2 bowel movements today. She declined her MiraLAX and Dulcolax today because she has had 2 bowel movements. Prior to her admission, she reports occasional constipation and takes a stool softener as needed. She does take Prilosec at home. She states her symptoms are worse at night where she has a cough that she feels is related to reflux. She has reported occasional nausea and had an episode of vomiting in the emergency room. She also reports having pancreatitis in the past. Her CT scan and amylase and lipase do not show any evidence of pancreatitis on this admission. She has been followed by Dr. 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 Her last EGD was in December 2017 that showed cricopharyngeal achalasia, Schatzki's ring with dilation performed, hiatal hernia, gastritis and retained gastric secretions in the stomach. OBJECTIVE: Vital Signs: Temperature 98.1 degrees, pulse 88, respirations 18, blood pressure 159/76. General: Patient is awake, alert, no acute distress. Abdomen: Soft, nontender. Positive bowel sounds. LABORATORY: Hematology 5.10, hemoglobin 10.6, hematocrit 35.6, MCV 100.8, platelet 166,000. Sodium 146, potassium 4.1, chloride 111. CO2 26, BUN 9, creatinine 1.3, glucose 149. Calcium 8.5, total bilirubin 0.27, AST 15, ALT 9, alkaline phosphatase 66. ASSESSMENT AND PLAN: 1. Epigastric abdominal pain has improved. The patient has had several bowel movements. Recommend she continue to take MiraLAX daily, but decrease the amount if needed. She can use Dulcolax suppository as needed. 2. Gastroesophageal reflux disease. Recommend to continue PPI at home if needed. She can change her proton pump inhibitor to evening dose since she reports cough at night. 3. Chest pain has resolved. 4. Epigastric pain. Continue PPI. 5. Other medical problems, including anxiety/depression, diabetes, obesity. PLAN: Continue PPI, follow anti-reflux measures. We will advance her diet to a GI soft diet today. Continue MiraLAX daily. Further plans to be made according to her progress. I have discussed this case with Dr. Junior. Dictated by GOLDY Guzman for Gerson Junior MD cc: GOLDY Sanchez MD
--- NOTE | 2018-04-22 13:49 | PROGRESS NOTE ---
DATE: 04/22/2018 SUBJECTIVE: The patient complains of diarrhea. She admits that she did drink milk, and she is lactose intolerant. OBJECTIVE: Vital Signs: Temperature 98, blood pressure 159/76, heart rate 88, respirations 18, O2 saturation 99% on room air. General: This is a morbidly obese female sitting in a chair in no acute distress. Heart: S1, S2 normal. Regular rate and rhythm. Lungs: Clear to auscultation bilaterally. No wheezing. No rales. No rhonchi. Abdomen: Positive bowel sounds. Soft, obese, nontender, nondistended. Extremities: No edema, no cyanosis, no calf tenderness. Neurologic: The patient is alert and oriented x4. LABS: Sodium 146, potassium 4.1, chloride 111, CO2 of 26, BUN 9, creatinine 1.3, glucose 149, calcium 8.5. ASSESSMENT AND PLAN: 1. Diarrhea. We will hold laxatives today. This is likely secondary to laxatives plus consumption of milk. 2. Atypical chest pain. Resolved. 3. Hypothyroidism. The patient's TSH is low and her free T4 is high. The patient reports that her Synthroid dose was decreased in February to 137 mcg by her primary care physician. The patient likely needs another adjustment down given the results. Will have the patient follow up with her primary care physician upon discharge. 4. Diabetes mellitus type 2. Continue on the current insulin regimen. 5. Morbid obesity. Aware. 6. Situational depression. Continue on Zoloft. 7. Anxiety disorder. Continue on Xanax. 8. Chronic kidney disease. Stable. Will avoid nephrotoxic agents. 9. Hypernatremia. We will switch the patient to half-normal saline and repeat the sodium tomorrow. 10. Disposition. If the patient's diarrhea has resolved, and she is feeling up to it, the patient should be stable for discharge home tomorrow. cc: Charity Barnes MD
[2018-04-22] MEDS: XANAX PO PRN (15:50)
[2018-04-22] MEDS: NORCO-5 PO PRN (15:50)
[2018-04-22] MEDS: TYLENOL PO PRN (15:53)
[2018-04-22] MEDS: APRESOLINE PO SCH (17:42)
[2018-04-22] MEDS: LOVENOX SUBQ SCH (17:43)
[2018-04-22] MEDS: LIPITOR PO SCH (22:30)
[2018-04-23] MEDS: 1/2 NS 1,000 ML IV SCH ×2 (00:12→19:42)
[2018-04-23] MEDS: APRESOLINE PO SCH ×3 (01:26→17:17)
[2018-04-23] MEDS: XANAX PO PRN ×2 (01:26→20:14)
[2018-04-23] MEDS ORDERED: HALL'S COUGH LOZENGE MT PRN (03:33)
[2018-04-23] MEDS: TYLENOL PO PRN ×3 (04:02→23:00)
[2018-04-23] MEDS ORDERED: INSULIN PEN NEEDLES ONE (05:59)
[2018-04-23] MEDS: HUMULIN R SUBQ SCH ×4 (06:34→21:47)
[2018-04-23 07:41] LABS: CALCIUM 8.1 mg/dL (8.8-10.2); CREATININE 1.2 mg/dL (0.5-0.9); POTASSIUM 4.1 mmol/L (3.5-5.1)
[2018-04-23] MEDS: MIRALAX PO SCH (09:20)
[2018-04-23] MEDS: ZOLOFT PO SCH (09:21)
[2018-04-23] MEDS: SODIUM CHLORIDE 0.9% INJ SCH ×2 (09:21→21:46)
[2018-04-23] MEDS: PROTONIX IV SCH ×2 (09:21→21:46)
[2018-04-23] MEDS: BASAGLAR SUBQ SCH ×2 (09:23→21:47)
--- NOTE | 2018-04-23 13:05 | PROGRESS NOTE ---
DATE: 04/23/2018 SUBJECTIVE: Patient is sitting up in a chair in no acute distress. She states she is feeling better. She still reports some mild epigastric pain. No reported chest pain. She has had some bowel movements. She is receiving daily laxatives. OBJECTIVE: Vital Signs: Temperature 97.8 degrees, pulse 83, respirations 18, blood pressure 159/94. General: Patient is awake and alert in no acute distress. She is sitting up in a chair. LABORATORY: Hematology: WBC 5.10, hemoglobin 10.6, hematocrit 35.6, MCV 100.8. Chemistry: Sodium 145, potassium 4.1, chloride 109, CO2 26, BUN 10, creatinine 1.2, glucose 134. ASSESSMENT AND PLAN: 1. Epigastric pain has improved. 2. Gastroesophageal reflux disease. Her dysphagia had improved after esophageal dilation in December [address] Sharma. I recommend anti-reflux measures. Continue proton-pump inhibitors. 3. Chest pain has resolved. PLAN: Continue PPI. Follow anti-reflux measures. She states she has tolerated a diet. Continue MiraLAX. Would not recommend proceeding with an endoscopy at this time. The patient states she actually has a follow up appointment with Dr. Junior next week in the office. Once discharged, recommend she follow in the office as an outpatient for further evaluation and management if indicated. I have discussed this case with Dr. Junior. Dictated by GOLDY Guzman for Gerson Junior MD cc: GOLDY Sanchez MD
[2018-04-23] MEDS: LOVENOX SUBQ SCH (17:17)
--- NOTE | 2018-04-23 18:20 | PROGRESS NOTE ---
DATE: 04/23/2018 SUBJECTIVE: Patient resting in bed. Her diarrhea has resolved. OBJECTIVE: Vital signs: Temperature is 98.5 degrees, pulse 70, respiratory rate 16, blood pressure 172/86. HEENT: She is atraumatic, normocephalic. Cardiovascular: S1, S2. Respiratory: Has evidence of good air entry bilaterally. Abdomen: Soft, nontender. No masses felt. Extremities: No evidence of significant edema. Central nervous system: No obvious focal deficits noted. LABS: Sodium is 145, potassium 4.1, chloride is 109, bicarb 26, BUN is 10, creatinine 1.5. TSH 0.26, free T4 is 1.77. ASSESSMENT AND PLAN: 1. Diarrhea. Resolved. 2. Atypical chest pain. Resolved. 3. Hypothyroidism. Follow up with primary care physician in the outpatient to have Synthroid dose adjusted. 4. Diabetes mellitus. Continue sliding scale insulin as well as blood sugar monitoring. 5. Chronic kidney disease. Avoid nephrotoxic agent. Follow up renal function. 6. Hyponatremia. Resolved. 7. Disposition. Patient can be discharged home tomorrow morning. cc: Yonathan Caceres MD
[2018-04-23] MEDS: LIPITOR PO SCH (21:46)
[2018-04-23] MEDS: ATIVAN IV PRN (22:56)
[2018-04-24] MEDS: APRESOLINE PO SCH (02:23)
[2018-04-24] MEDS: HUMULIN R SUBQ SCH (06:41)
[2018-04-24 07:53] VITALS: BP 169/63
[2018-04-24] MEDS: ZOLOFT PO SCH (08:30)
[2018-04-24] MEDS: BASAGLAR SUBQ SCH (08:31)
[2018-04-24] MEDS: PROTONIX IV SCH (08:31)
[2018-04-24] MEDS: MIRALAX PO SCH (08:31)
--- NOTE | 2018-04-26 21:48 | DISCHARGE SUMMARY ---
ADMISSION DATE: 04/22/2018 DISCHARGE DATE: 04/24/2018 PRINCIPAL DIAGNOSIS: Atypical chest pain. SECONDARY DIAGNOSIS: 1. Of diarrhea which is now resolved. 2. Diabetes mellitus type 2. 3. Hypertension. 4. Hypothyroidism. 5. Rheumatoid arthritis. 6. Chronic kidney disease. 7. Hyponatremia now resolved. 8. Morbid obesity. 9. Situational depression. 10. Anxiety disorder. DISCHARGE MEDICATIONS: Include Lantus insulin 20 units subcu in the morning and 20 units subcu at bedtime, Xanax 0.5 mg 3 times a day as needed, hydrochlorothiazide 25 mg p.o. daily, irbesartan 150 mg p.o. daily, Robaxin 750 mg 3 times a day, omeprazole 40 mg p.o. daily, levothyroxine to be taken as directed, [place] 5/325 every 6 hours as needed, Atorvastatin 10 mg p.o. daily. CONSULTATIONS: Gastroenterology [facility]. PROCEDURES: Chest CT 04/19/2018, head CT 04/20/2018, abdomen and pelvis CT . HOSPITAL COURSE: Ms. Willie Orozco is 72-year-old female who was admitted to hospital because of chest pain. The plan was to be place on telemetry and follow up on serial cardiac enzymes. Acute [place] was ruled out negative cardiac exam. Chest CT did not show any acute disease. During the course of the hospital stay she developed abdominal pain along with nausea and also diarrhea was seen by the GI team. She had a CT scan of the abdomen and pelvis which did not show any acute findings however there was a nonspecific perinephric edema noted on the left. Chest pain as well as diarrhea got resolved. Patient was subsequently discharged home 2018 with plans to follow up with primary care physician Dr. Parker and also follow up with Cardiology Dr. Micky Huynh and GI Dr. Nancy Pringle or Gerson Alvarez . cc: Yonathan Caceres MD [facility]
== END 2018-04-24 09:01 | disposition home health service (06) | DRG 313 ==
LOC: 4N 14:50 → ED 14:50 → SUATTDRO 04-19 02:41 → 4N 04-19 18:19 → SUATTDRO 04-22 07:17
PROVIDERS: ATTEND Internal Medicine
CPT/HCPCS: 70450; 71020; 71046; 71250; 74176; 80048; 80053; 80061; 81001; 82150; 82550; 82948; 83690; 83735; 83880; 84439; 84443; 84484; 85025; 85027; 85610; 85651; 85730; 86038; 86039; 86140; 87275; 87276; 87804; 93005; 93010; 94761; 96374; 96375; 97162; 97530; 99285; A9270; C9113; J1650; J2060; J2270; J2405; J7030; S0164; XXXXX